=== PATIENT | female | born 1995 | race Caucasian/White ===

== ENCOUNTER → 2017-09-07 | Outpatient (CLI) | payer OTHER ==
--- NOTE | 2017-09-07 15:24 | DIAGNOSTIC IMAGING REPORT ---
EXTREMITY NONVASCULAR LIMITED CLINICAL HISTORY: LUMPS ON THE BACK COMPARISON STUDY: No previous studies for comparison. FINDINGS: Sonography of the inferior back revealed multiple hypoechoic circumscribed lesions which likely correspond to the palpable abnormalities. Within the inferior left back, there is a 5.7 x 1 x 4.5 cm lesion within the deep subcutaneous tissues. There is a 4.3 x 1.6 x 4.4 cm subcutaneous right inferior back lesion. These are similar echogenicity to the adjacent subcutaneous fat. IMPRESSION: Several bilateral lower back subcutaneous masses which correspond to the palpable abnormalities. The sonographic appearance is nonspecific but favors lipomas. Clinical follow up to ensure stability is recommended. Electronically signed by: Von Hutchinson M.D. 09/07/2017 3:23 PM Dictated Date/Time: 09/07/2017 3:21 PM
== END | disposition home or self-care (01) ==
LOC: C.ULTR 14:34
PROVIDERS: ATTEND Family Medicine
DX: R22.2 Localized swelling, mass and lump, trunk (principal)

== ENCOUNTER → 2017-10-05 | Outpatient (CLI) | payer OTHER ==
[~2017-10-05] MED LIST: GADAVIST IV PRN
--- NOTE | 2017-10-05 19:15 | DIAGNOSTIC IMAGING REPORT ---
MRI OF THE LUMBAR SPINE WITH AND WITHOUT CONTRAST CLINICAL HISTORY: Multiple lipomas in the lower back. Left lumbar pain. Left leg weakness. COMPARISON STUDY: Lower back ultrasound September 07, 2017. TECHNIQUE: Utilizing a 1.5 Trinity magnet and dedicated coil, multiplanar, multiecho imaging of the lumbar spine was performed before and after uneventful IV administration of 7 mL of Gadavist. FINDINGS: For purposes of numbering on this exam, the L5-S1 disc space is assigned to axial image 27 of 30. Alignment of the lumbar spine is anatomic. Vertebral body heights are maintained. There is no intracanalicular mass or fluid collection. The conus terminates at the T12-L1 level. There is no intracanalicular mass or fluid collection. Trace fluid within the pelvis is likely physiologic. Disc spaces are preserved. The apparent subcutaneous masses shown on ultrasound of September 07, 2017 are not definitively identified on this lumbar spine MRI although lipomas may be occult. L1-2: The central canal and neural foramen are patent. L2-3: The central canal and neural foramen are patent. L3-4: The central canal and neural foramen are patent. L4-5: The central canal and neural foramen are patent. L5-S1: Central canal and neural foramen are patent. IMPRESSION: 1. Unremarkable MRI of the lumbar spine. Patent central canal and neural foramen. No disc herniations. 2. The apparent subcutaneous mass shown on ultrasound of September 07, 2017 are not visualized on this exam although lipomas may be occult given similar appearing adjacent subcutaneous fat. Electronically signed by: Von Hutchinson M.D. 10/05/2017 7:14 PM Dictated Date/Time: 10/05/2017 6:41 PM
--- NOTE | 2017-10-05 19:16 | DIAGNOSTIC IMAGING REPORT ---
MRI OF THE PELVIS WITH AND WITHOUT CONTRAST CLINICAL HISTORY: Multiple lipomas. Left leg weakness. Left lower back pain. COMPARISON STUDY: Back ultrasound September 07, 2017. TECHNIQUE: Utilizing a 1.5 Trinity magnet and dedicated coil, multiplanar, the echo imaging of the lower back and pelvis was performed pre and postcontrast administration. Injection of 7 cc of Gadavist IV was uneventful. FINDINGS: No subcutaneous mass is identified within the lower back or upper buttocks. No abnormal enhancement is identified. Sacroiliac joints are intact. Sacral neural foramen are patent. Trace free fluid within the pelvis is likely physiologic. Ovaries are unremarkable. Visualized portions of the pelvis are also unremarkable. No suspicious marrow replacement or marrow edema is identified within visualized skeletal structures. No sacroiliac joint erosions are identified. IMPRESSION: No low back/buttock mass by MRI. However, lipomas may be occult by MRI given similar signal characteristics of adjacent subcutaneous fat. Electronically signed by: Von Hutchinson M.D. 10/05/2017 7:14 PM Dictated Date/Time: 10/05/2017 7:03 PM
== END | disposition home or self-care (01) ==
LOC: C.MRI 16:59
PROVIDERS: ATTEND Surgery
DX: D17.9 Benign lipomatous neoplasm, unspecified (principal)